=== PATIENT | male | born 1970 | race Caucasian/White ===

== ENCOUNTER → 2017-08-13 | Outpatient (CLI) | payer OTHER | END | disposition home or self-care (01) | LOC: US 09:26 | DX: I82.491 Acute embolism and thrombosis of other specified deep vein of right lower extremity (principal); M79.89 Other specified soft tissue disorders | CPT/HCPCS: 93971 ==

== ENCOUNTER 2017-12-13 14:01 | Inpatient (IN) | payer OTHER ==
[2017-12-13 14:22] LABS: ADD MAN DIFF? NO
[2017-12-13 14:25] LABS: BASO # 0.1 x10^3/uL (0.0-0.2); BASO % 1 % (0-3); EOS # 0.2 x10^3/uL (0.0-0.7); EOS % 3 % (0-3); HEMATOCRIT 44.1 % (39.0-53.0); HEMOGLOBIN 15.1 g/dL (13.0-17.5); LYMPH % 27 % (24-48); MEAN CORPUSCULAR HEMOGLOBIN 29 pg (25-35); MEAN CORPUSCULAR HGB CONC 34 g/dL (31-37); MEAN CORPUSCULAR VOLUME 85 fL (79-100); MONO # 0.6 x10^3/uL (0.0-1.1); MONO % 8 % (0-9); NEUT # 4.5 x10^3uL (1.8-7.7); NEUT % 61 % (31-73); PLATELET COUNT 321 x10^3/uL (140-400); RED BLOOD COUNT 5.18 x10^6/uL (4.30-5.70); RED CELL DISTRIBUTION WIDTH 13.6 % (11.5-14.5); WHITE BLOOD COUNT 7.3 x10^3/uL (4.0-11.0)
[2017-12-13 14:35] LABS: PROTHROMBIN TIME PATIENT 12.6 SEC (11.7-14.0)
[2017-12-13 14:38] LABS: D-DIMER 0.27 ug/mlFEU (0.00-0.50)
[2017-12-13 14:43] LABS: ANION GAP 8 (6-14); BLOOD UREA NITROGEN 13 mg/dL (8-26); BUN/CREATININE RATIO 12 (6-20); CALCIUM 8.9 mg/dL (8.5-10.1); CARBON DIOXIDE 27 mmol/L (21-32); CHLORIDE 105 mmol/L (98-107); CREATININE 1.1 mg/dL (0.7-1.3); GFR 72.1; GLUCOSE 138 mg/dL (70-99); POTASSIUM 4.4 mmol/L (3.5-5.1); SODIUM 140 mmol/L (136-145)
[2017-12-13 14:48] LABS: ALK PHOS 152 U/L (46-116); ALT (SGPT) 48 U/L (16-63); AST (SGOT) 38 U/L (15-37); MAGNESIUM 2.1 mg/dL (1.8-2.4); TOTAL BILIRUBIN 0.4 mg/dL (0.2-1.0); TOTAL PROTEIN 8.2 g/dL (6.4-8.2)
[2017-12-13 14:55] LABS: BARBITURATES NEG (NEG); BENZODIAZEPINES NEG (NEG); CANNABINOIDS NEG (NEG); COCAINE NEG (NEG); METHADONE NEG (NEG); OPIATES NEG (NEG); PHENCYCLIDINE NEG (NEG)
[2017-12-13 14:55] LABS: THYROID STIM HORMONE (TSH) 1.022 uIU/mL (0.358-3.74)
[2017-12-13 14:57] LABS: TROPONINI < 0.017 ng/mL (0.000-0.055)
[2017-12-13 14:57] LABS: AMPHETAMINE/METHAMPHETAMINE NEG (NEG); ETHANOL, URINE NEG (NEG)
[2017-12-13 14:59] LABS: NT-PRO BNP 35 pg/mL (0-124)
[2017-12-13 14:59] LABS: CKMB INDEX 0.3 % (0-4); CKMB MASS 0.6 ng/mL (0.0-3.6); CREATINE KINASE 178 U/L (39-308)
[2017-12-13 15:03] LABS: BILIRUBIN,URINE NEGATIVE (NEG); CLARITY,URINE CLEAR; COLOR,URINE YELLOW; GLUCOSE,URINE NEGATIVE (NEG); NITRITE,URINE NEGATIVE (NEG); PH,URINE 5.5; PROTEIN,URINE NEGATIVE (NEG-TRACE); UROBILINOGEN,URINE 0.2 mg/dL (0.2 mg/dL)
[2017-12-13 15:04] LABS: BACTERIA,URINE 0 /HPF (0-FEW); RBC,URINE 0 /HPF (0-2); WBC,URINE 0 /HPF (0-4)
[2017-12-13] MEDS: ONDANSETRON PF 4 MG/2 ML VIAL. IV ×2 (15:40→18:31)
[2017-12-13] MEDS: MORPHINE SULFATE 10 MG/ML VIAL. IV (15:40)
[2017-12-13] MEDS ORDERED: MECLIZINE HCL 12.5 MG TABLET. PO (16:30)
[2017-12-13] MEDS ORDERED: ACETAMINOPHEN 325 MG TABLET. PO ×2 (16:30→17:15)
[2017-12-13] MEDS ORDERED: ZOLPIDEM 5 MG TABLET. PO (16:30)
[2017-12-13] MEDS: PANTOPRAZOLE 40 MG TABLET.DR. PO (16:30)
[2017-12-13] MEDS ORDERED: PROCHLORPERAZINE 10 MG/2 ML VIAL. IV (16:30)
[2017-12-13] MEDS ORDERED: MAG HYDROX/ALUMINUM HYD/SIMETH 30 ML ORAL.SUSP PO (16:30)
[2017-12-13] MEDS ORDERED: CALCIUM CARBONATE 500 MG TAB.CHEW PO (16:30)
[2017-12-13] MEDS ORDERED: NITROGLYCERIN SUBLINGUAL 0.4 MG BOTTLE OF 25. SL (17:15)
[2017-12-13] MEDS ORDERED: MORPHINE SULFATE 4 MG/ML DISP.SYRIN. IV (17:15)
[2017-12-13] MEDS ORDERED: ONDANSETRON PF 4 MG/2 ML VIAL. IV (17:15)
[2017-12-13] MEDS: MORPHINE SULFATE 2 MG/ML DISP.SYRIN. IV (19:12)
[2017-12-13] MEDS: SIMVASTATIN 20 MG TABLET PO (21:07)
[2017-12-13] MEDS: IBUPROFEN 400 MG TABLET. PO (21:08)
[2017-12-13 21:51] LABS: TROPONINI < 0.017 ng/mL (0.000-0.055)
[2017-12-14 01:34] LABS: TROPONINI < 0.017 ng/mL (0.000-0.055)
[2017-12-14 02:14] LABS: ADD MAN DIFF? NO
[2017-12-14 02:42] LABS: BASO # 0.1 x10^3/uL (0.0-0.2); BASO % 1 % (0-3); EOS # 0.1 x10^3/uL (0.0-0.7); EOS % 2 % (0-3); HEMATOCRIT 40.7 % (39.0-53.0); HEMOGLOBIN 14.1 g/dL (13.0-17.5); LYMPH % 27 % (24-48); MEAN CORPUSCULAR HEMOGLOBIN 29 pg (25-35); MEAN CORPUSCULAR HGB CONC 35 g/dL (31-37); MEAN CORPUSCULAR VOLUME 85 fL (79-100); MONO # 0.5 x10^3/uL (0.0-1.1); MONO % 6 % (0-9); NEUT # 4.8 x10^3uL (1.8-7.7); NEUT % 64 % (31-73); PLATELET COUNT 289 x10^3/uL (140-400); RED BLOOD COUNT 4.81 x10^6/uL (4.30-5.70); RED CELL DISTRIBUTION WIDTH 13.7 % (11.5-14.5); WHITE BLOOD COUNT 7.5 x10^3/uL (4.0-11.0)
[2017-12-14 02:48] LABS: ALBUMIN 3.4 g/dL (3.4-5.0); ALBUMIN/GLOBULIN RATIO 0.9 (1.0-1.7); ALK PHOS 124 U/L (46-116); ALT (SGPT) 40 U/L (16-63); ANION GAP 6 (6-14); AST (SGOT) 21 U/L (15-37); BLOOD UREA NITROGEN 12 mg/dL (8-26); BUN/CREATININE RATIO 12 (6-20); CALCIUM 8.4 mg/dL (8.5-10.1); CARBON DIOXIDE 29 mmol/L (21-32); CHLORIDE 105 mmol/L (98-107); GFR 80.4; GLUCOSE 148 mg/dL (70-99); POTASSIUM 3.9 mmol/L (3.5-5.1); SODIUM 140 mmol/L (136-145); TOTAL BILIRUBIN 0.3 mg/dL (0.2-1.0)
[2017-12-14 02:54] LABS: TROPONINI < 0.017 ng/mL (0.000-0.055)
[2017-12-14] MEDS: MULTIVITAMIN with MINERAL TABLET. PO (14:21)
[2017-12-14] MEDS: PANTOPRAZOLE 40 MG TABLET.DR. PO (14:21)
[2017-12-14] MEDS ORDERED: IBUPROFEN 600 MG TABLET. PO (15:36)
== END 2017-12-14 16:15 | disposition home or self-care (01) | DRG 392 ==
LOC: 2 NORTH 17:54 → ER 14:01 → 2 NORTH 16:19
DX: K21.9 Gastro-esophageal reflux disease without esophagitis (principal); R07.89 Other chest pain; I10 Essential (primary) hypertension; E78.00 Pure hypercholesterolemia, unspecified; Z88.8 Allergy status to other drugs, medicaments and biological substances; Z82.49 Family history of ischemic heart disease and other diseases of the circulatory system; E78.5 Hyperlipidemia, unspecified; G89.29 Other chronic pain; M54.5 Low back pain; F41.9 Anxiety disorder, unspecified; Z80.0 Family history of malignant neoplasm of digestive organs
CPT/HCPCS: 36415; 71045; 80053; 80307; 81001; 82553; 83735; 83880; 84443; 84484; 85025; 85379; 85610; 93005; 93017; 93350; 96374; 96375; 99285; 99285-25; J2270; J2405